=== PATIENT | female | born 1960 | race Caucasian/White ===

== ENCOUNTER 2016-07-30 17:18 | Observation (INO) | payer BC ==
[~2016-07-30] VITALS: Ht 170.2 cm; Wt 83.9 kg
[2016-07-30 18:42] LABS: HEMOGLOBIN 13.5 gm/dl (12.3-15.3); RED BLOOD COUNT 4.57 M/UL (4.00-5.10); WHITE BLOOD COUNT 8.7 K/UL (4.5-11.0)
[2016-07-30 19:02] LABS: BUN/CREATININE RATIO 14 (0-10)
[2016-07-31 07:16] LABS: HEMOGLOBIN 12.4 gm/dl (12.3-15.3); RED BLOOD COUNT 4.2 M/UL (4.00-5.10)
[2016-07-31 07:36] LABS: BUN/CREATININE RATIO 14 (0-10)
[2016-07-31] MEDS ORDERED: PRAVACHOL40 MG PO (08:00)
[2016-07-31] MEDS ORDERED: JARDIANCE10 MG PO (08:01)
[2016-07-31] MEDS ORDERED: KOMBIGLYZE XR1 EACH PO (08:01)
[2016-07-31] MEDS ORDERED: INVANZ 1 GM VIAL1 GM IV (15:36)
[2016-07-31] MEDS ORDERED: ZOFRAN4 MG PO (15:37)
== END 2016-07-31 15:50 | disposition home or self-care (01) ==
LOC: ER1 17:18 → ZEROF 21:01 → M/S 21:01
PROVIDERS: Emergency Medicine; Internal Medicine; ADMIT Family Medicine
DX: A41.9 Sepsis, unspecified organism (principal); N30.00 Acute cystitis without hematuria; E11.9 Type 2 diabetes mellitus without complications; E78.5 Hyperlipidemia, unspecified; E87.6 Hypokalemia; Z87.440 Personal history of urinary (tract) infections; Z87.19 Personal history of other diseases of the digestive system; Z90.710 Acquired absence of both cervix and uterus; Z79.899 Other long term (current) drug therapy
CPT/HCPCS: 36415; 80048; 81001; 82962; 83605; 83690; 84132; 85025; 87040; 87077; 87086; 87186; 96361; 96365; 99285; G0378; J1335; J7050

== ENCOUNTER → 2016-08-01 | Outpatient (CLI) | payer BC ==
[~2016-08-01] VITALS: Ht 170.2 cm; Wt 83.9 kg
[~2016-08-01] MED LIST: INVANZ 1 GM VIAL1 GM IV; JARDIANCE10 MG PO; KOMBIGLYZE XR1 EACH PO; PRAVACHOL40 MG PO; ZOFRAN4 MG PO
== END ==
LOC: OPSV 09:55
DX: N30.90 Cystitis, unspecified without hematuria (principal)
CPT/HCPCS: 96372; J1335

== ENCOUNTER → 2016-08-02 | Outpatient (CLI) | payer BC ==
[~2016-08-02] VITALS: Ht 170.2 cm; Wt 83.9 kg
== END ==
LOC: OPSV 07:38
DX: N30.90 Cystitis, unspecified without hematuria (principal)
CPT/HCPCS: 96372; J1335

== ENCOUNTER → 2016-08-03 | Outpatient (CLI) | payer BC ==
[~2016-08-03] VITALS: Ht 170.2 cm; Wt 83.9 kg
== END ==
LOC: OPSV 07:22
DX: N30.90 Cystitis, unspecified without hematuria (principal)
CPT/HCPCS: 96372; J1335

== ENCOUNTER → 2016-08-04 | Outpatient (CLI) | payer BC ==
[~2016-08-04] VITALS: Ht 170.2 cm; Wt 83.9 kg
== END ==
LOC: OPSV 07:39
DX: N30.90 Cystitis, unspecified without hematuria (principal)
CPT/HCPCS: 96372; J1335

== ENCOUNTER → 2016-08-05 | Outpatient (CLI) | payer BC | LOC: OPSV 09:42 | DX: N30.90 Cystitis, unspecified without hematuria (principal) | CPT/HCPCS: 96372; J1335 ==

== ENCOUNTER → 2020-08-14 | Outpatient (CLI) | payer BC | LOC: MRI 08:15 | DX: H53.411 Scotoma involving central area, right eye (principal); E11.9 Type 2 diabetes mellitus without complications; H54.3 Unqualified visual loss, both eyes; I10 Essential (primary) hypertension | CPT/HCPCS: 70551 ==

== ENCOUNTER → 2021-07-17 | Outpatient (CLI) | payer BC | LOC: KOH-I 10:59 | DX: M25.551 Pain in right hip (principal); M25.552 Pain in left hip; M54.50 Low back pain, unspecified; M43.17 Spondylolisthesis, lumbosacral region; M16.0 Bilateral primary osteoarthritis of hip | CPT/HCPCS: 72100; 73522 ==